=== PATIENT | female | born 1985 | race Hispanic/Latino ===

== ENCOUNTER 2016-07-30 01:08 | Emergency (ER) | payer OTHER ==
[~2016-07-30] VITALS: Ht 144.8 cm; Wt 63.5 kg
[~2016-07-30 01:08] MED LIST: PREN1TAB69 PO
[2016-07-30 01:13] VITALS: BP 104/71; PULSE 75; RESP 16; O2SAT 100
--- NOTE | 2016-07-30 01:14 | ED.REPORT ---
HPI-Abd Pain F Under 41 Date of Service Jul 30, 2016 ED Provider: Conner Marr MD Patient is a 31 year old female who presents to the ED complaining of dysuria that began earlier this evening. The patient states that it takes a great deal of effort to urinate and that she is unable to fully empty her bladder. On arrival to the ED the patient noted hematuria. The patient is not currently on her menstrual period and states that her current symptoms are different than what she experiences with her period. Patient denies previously having a urinary tract infection. She reports mild back pain and abdominal pain but denies a fever, nausea, vomiting, diarrhea, or flank pain. Patient is generally healthy and does not take any medications daily. Nursing Notes Stated Complaint: PAINFUL URINATION Chief Complaint: Female Abdominal Pain Nursing Notes Reviewed: Yes Allergies: Coded Allergies: No Known Allergies (Unverified Allergy, Unknown, 07/30/16) Scheduled Cephalexin (Keflex) 500 Mg Capsule 500 MG PO TID Vit/Fe Fumarate/Fa-Expunged Drug, Do (-Expunged Drug, Do Not Renew!) 1 Each Tablet 1 EACH PO DAILY Scheduled PRN Phenazopyridine (Phenazopyridine) 200 Mg Tablet 200 MG PO TID PRN PRN dysuria General Time Seen by MD: 01:14 Chief Complaint Dysuria Hx Obtained From: Patient Arrived By: Walk-in Sudden in Onset?: No Onset Occurred: 5 - 8 hours ago Symptom Duration: Since onset Progression since Onset: Gradually worsening Recent Healthcare: No recent doctor visit, No recent hospitalization Similar Sx Previous: No Past Medical History Past Medical History Notes: Past Medical History healthy Past Surgical History none Smoking History Never Smoker Social History Alcohol Use: Denies alcohol use Drug Use: Denies drug use Other Social History: Good social support, Local resident Ambulatory Status Independent Review of Systems Constitutional: Denies: Chills, Fever GI: Reports: Abdominal pain, Denies: Diarrhea, Nausea, Vomiting Female: Reports: Dysuria, Flank pain, Hematuria, Urination decreased Musculoskeletal: Reports: Back pain Complete sys rev & neg: except as marked. Physical Exam Initial Vital Signs Vital Signs (First) Date Time Temp Pulse Resp B/P Pulse Ox O2 Delivery O2 Flow Rate FiO2 07/30/16 01:13 36.9 75 16 104/71 100 Room Air Initial VS: Reviewed Head / Eyes: Atraumatic, Normocephalic, PERRL ENT: Conjunctiva normal, No scleral icterus Neck: Supple, Full range of motion Skin: Warm, Dry, No cyanosis Neurologic: Alert, Oriented, Nonfocal Psychiatric: Mood/affect normal, Behavior normal, Normal thought content General/Constitutional: Awake, Alert, No acute distress Respiratory / Chest: No respiratory distress Cardiovascular: Heart rate NL Abdomen: Soft, No guarding, No rebound Tenderness/Guarding/Rebound: Positive: Tender suprapubic Back: No midline vertebral tend, No CVA tenderness Upper Extremity / MS: Full range of motion, No deformity Lower Extremity / Pelvis / MS: Full range of motion, No deformity Interpretation & Diagnostics Interpretation & Diagnostics: Urine Dip: +++ Leukocytes, ? nitrites, +++Protein, +++ Blood, +++ Hemoglobin. All else within normal limits. Urine Test: Negative Lab Results Interpretation Test 07/30/16 01:32 Urine Color Red (YELLOW) Urine Appearance Cloudy (CLEAR,HAZY) Urine pH 6.0 (5.0-8.0) Urine Specific Urich 1.015 (1.003-1.035) Urine Protein 100mg/dL (NEG,TRACE) Urine Glucose (UA) Negativemg/dL (NEGATIVE) Urine Ketones Negativemg/dL (NEGATIVE) Urine Occult Blood Moderate (NEGATIVE) Urine Nitrite Negative (NEGATIVE) Urine Bilirubin Negative (NEGATIVE) Urine Urobilinogen Normalmg/dL (NORMAL) Urine Leukocyte Esterase Small (NEGATIVE) Urine RBC Packed/hpf (0-2) Urine WBC 0-5/hpf (0-5) Urine Epithelial Cells Occasional/hpf (NONE-MOD) Urine Crystals None seen (NONE SEEN) Urine Bacteria None/hpf (NONE-FEW) Urine Hyaline Casts None/lpf (NONE) Urine Granular Casts None seen (NONE SEEN) Urine Waxy Casts None seen (NONE SEEN) Urine Red Blood Cell Casts None seen (NONE SEEN) Urine White Blood Cell Casts None seen (NONE SEEN) Urine Mucus None seen (None Seen) Urine Trichomonas None seen (NONE SEEN) Urine Yeast None (NONE SEEN) Urine Culture Reflexed Indicated Hold Urine Received (Received) Re-Eval/Medical Decision Med Decision/Clinical Course Med Decision/Clinical Course: 31-year-old female with acute onset of dysuria and hematuria. This is her first instance. No evidence of upper tract disease. She is not . Initial dose of Keflex with Keflex ten days to follow. Pyridium when necessary. Follow-up with PCP. Source of Hx: Old records Re-Evaluation/Progress : Time of Eval: 01:45 Patient Status: Condition improved Re-Evaluation/Progress Note: The patient has a UTI, which will be treated with antibiotics. Patient understands and agrees with the plan to be discharged home. Discharge instructions and follow-up discussed. All questions were addressed. Return to the ED warnings given. Counseled Regarding: Diagnosis, Lab results, Need for follow-up, When/why to return to ED Discharge & Departure Primary Impression: UTI (urinary tract infection) Urinary tract infection type: acute cystitis Hematuria presence: with hematuria Qualified Code: N30.01 - Acute cystitis with hematuria Disposition: Home Discharge Condition All VS Reviewed: Yes Condition: Stable Patient Instructions: Urinary Tract Infection in Women (ED) Additional Instructions: Take Keflex three times daily for ten days Take Pyridium three times daily as needed for discomfort with urination. Pyridium will make your urine bright orange. This is normal. It will go away once you stop taking Pyridium. Drink plenty of fluids. Follow-up with your doctor in the office. [place] Keflex beth veces al da simon kyle dowling [place] Pyridium beth veces al da sarah sea necesario para el malestar con la micci n. El piridio dylan que galindo orina sea de color naranja brillante. Tiffin es normal. Se ir maximino vez que deje de sara Pyridium. Beber mucho lquido. Seguimiento con galindo mdico en la oficina. Referrals: Javy Mckeon DO (PCP) Scribe Attestation Portions of this note were transcribed by Bee Walter. I, Dr. Marr personally performed the history, physical exam and medical decision-making; I reviewed and confirmed the accuracy of the information in the transcribed note. Signed by: Pau Villanueva, 07/30/2016 0152 copies to: Javy Mckeon Christopher W MD Jul 30, 2016 01:14 Bee Walter Jul 30, 2016 01:23
[2016-07-30] MEDS ORDERED: Phenazopyridine 97.5 mg Tablet PO ONE (01:45)
[2016-07-30] MEDS ORDERED: CEPH-512 PO (01:48)
[2016-07-30] MEDS ORDERED: PHEN-777 PO (01:48)
[2016-07-30 01:53] LABS: APPEARANCE,URINE CLOUDY (CLEAR,HAZY); COLOR,URINE RED (YELLOW); OCCULT BLOOD,URINE MODERATE (NEGATIVE); UROBILINOGEN,URINE NORMAL (NORMAL)
[2016-07-30 02:13] VITALS: BP 112/75; PULSE 79; RESP 16; O2SAT 98
== END 2016-07-30 02:24 | disposition home or self-care (01) ==
LOC: SED 01:08
DX: N30.01 Acute cystitis with hematuria (principal)